=== PATIENT | male | born 2000 | race Caucasian/White ===

== ENCOUNTER 2020-01-24 14:03 | Outpatient (REF) | payer BC, SELFPAY ==
[2020-01-29 15:17] LABS: Patient Race White; SARS-CoV-2 Specimen Source Nasal
[2020-01-30 08:42] LABS: SARS-CoV-2 RNA Detected (Undetected)
== END 2020-01-24 14:23 ==
LOC: NCHCN 14:03
PROVIDERS: PCP Internal Medicine; Visit Provider Internal Medicine
DX: Z20.828 Contact with and (suspected) exposure to other viral communicable diseases (principal)
CPT/HCPCS: U0003

== ENCOUNTER 2021-07-24 22:47 | Outpatient (REF) | payer OTHER, SELFPAY ==
[2021-07-26 11:33] LABS: COVID-19 RT-PCR UVMMC Result Negative (Negative)
== END 2021-07-24 22:48 | disposition home or self-care (01) ==
LOC: NCHCN 22:47
PROVIDERS: PCP Internal Medicine; Visit Provider Internal Medicine
DX: Z20.822 Contact with and (suspected) exposure to COVID-19 (principal)
CPT/HCPCS: U0003